=== PATIENT | male | born 1995 | race Caucasian/White ===

== ENCOUNTER 2019-10-12 23:46 | Emergency (ER) | payer OTHER ==
--- NOTE | 2019-10-13 00:17 | EDM.PDOC ---
ED HPI GENERAL MEDICAL PROBLEM - General Stated Complaint: Neck and chest pain Time Seen by Provider: 10/13/19 00:04 Source of Information: Reports: Patient History Limitations: Reports: No Limitations - History of Present Illness INITIAL COMMENTS - FREE TEXT/NARRATIVE: He is seen in the emergency department for evaluation after being injured by a cow. They were calving, and the mother cow hit him and that somehow came down on top of him. He is not sure exactly what happened. He is complaining of pain in the right side of his neck extending to the jaw. Increased pain with movement. Initially had some numbness and weak feeling in the right arm but he states that has completely resolved. He is also complaining of pain in the anterior chest most severe at the sternum and left peristernal region. He does have increased pain with deep inspiration. No difficulty breathing or shortness of breath. No cough. He denies any head injury. No headache, dizziness, lightheadedness, visual changes, nausea, vomiting or memory problems. He denies any previous injuries. No recent illness. - Related Data Allergies Allergy/AdvReac Type Severity Reaction Status Date / Time No Known Allergies Allergy Verified 10/13/19 00:23 ED ROS GENERAL - Review of Systems Review Of Systems: See Below Constitutional: Denies: Fever, Chills HEENT: Denies: Eye Pain, Nose Pain, Throat Pain Respiratory: Denies: Shortness of Breath, Cough Cardiovascular: Reports: Chest Pain (. Chest wall pain in the midline). Denies : Lightheadedness, Palpitations : Denies: Dysuria, Flank Pain, Frequency, Urgency Musculoskeletal: Reports: Neck Pain (Right side of his neck). Denies: Shoulder Pain, Back Pain, Leg Pain Skin: Denies: Rash Neurological: Reports: Numbness, Tingling. Denies: Confusion, Dizziness, Headache, Weakness, Change in Speech, Gait Disturbance Psychiatric: Denies: Anxiety, Depression Hematologic/Lymphatic: Denies: Easy Bleeding ED EXAM, GENERAL - Physical Exam Exam: See Below Exam Limited By: No Limitations General Appearance: Alert, WD/WN, No Apparent Distress Ears: Normal External Exam, Normal Canal, Hearing Grossly Normal, Normal TMs Nose: Normal Inspection, No Blood Throat/Mouth: Normal Inspection, Normal Teeth, Normal Voice, No Airway Compromise Head: Atraumatic, Normocephalic Respiratory/Chest: No Respiratory Distress, Lungs Clear, Normal Breath Sounds, Other (Moderate tenderness over the sternum and anterior chest wall on the left side. Minimal tenderness on the right side. No palpable defect or crepitance.) Cardiovascular: Regular Rate, Rhythm, No Murmur GI/Abdominal: Normal Bowel Sounds, Soft, Non-Tender, No Distention, No Mass, Pelvis Stable (Male) Exam: Deferred Rectal (Males) Exam: Deferred Back Exam: No: CVA Tenderness (L), CVA Tenderness (R), Paraspinal Tenderness, Vertebral Tenderness Extremities: Normal Inspection, Normal Range of Motion Neurological: Alert, Oriented, CN II-XII Intact, No Motor/Sensory Deficits Psychiatric: Normal Mood Skin Exam: Warm, Dry Course - Vital Signs Text/Narrative:: He was stable throughout the emergency room stay. He was on 30 mg of Toradol IV for pain. Following clearance with the CT, the cervical collar was removed. He had diffuse tightness and tenderness on the right side of his neck. No cervical tenderness. Decreased range of motion of the neck in all directions secondary to pain on the right side. - Orders/Labs/Meds Orders: Active Orders 24 hr Category Date Time Status Cervical Spine wo Cont [CT] Routine Exams 10/13/19 00:18 Taken Chest w Cont [CT] Routine Exams 10/13/19 00:17 Taken Labs: Laboratory Tests 10/13/19 Range/Units 00:01 Sodium 138 (136-145) mmol/L Potassium 3.4 L (3.5-5.1) mmol/L Chloride 102 (98-107) mmol/L Carbon Dioxide 26.8 (21.0-32.0) mmol/L BUN 25 H (7-18) mg/dL Creatinine 1.02 (0.51-1.17) mg/dL Est Cr Clr Drug Dosing TNP Estimated GFR (MDRD) > 60 mL/min Glucose 130 H (74-106) mg/dL Calcium 8.7 (8.5-10.1) mg/dL Meds: Medications Discontinued Medications Generic Name Dose Route Start Last Admin Trade Name Freq PRN Reason Stop Dose Admin Iopamidol 100 ml 10/13/19 00:18 10/13/19 00:50 Isovue-300 (61%) IVPUSH 10/13/19 00:19 100 ml ONETIME STA Administration Ketorolac Tromethamine Confirm 10/13/19 00:50 Toradol Administered 10/13/19 00:51 Dose 30 mg .ROUTE .[facility] - Radiology Interpretation Free Text/Narrative:: CT scans of the neck was negative for fracture or other acute process. CT scan of the chest is negative for fracture, pneumothorax, peristernal hematoma. Departure - Departure Time of Disposition: :20 Disposition: Home, Self-Care 01 Condition: Good Clinical Impression: Contusion, chest wall, Cervical strain, acute - Discharge Information *PRESCRIPTION DRUG MONITORING PROGRAM REVIEWED*: No *COPY OF PRESCRIPTION DRUG MONITORING REPORT IN PATIENT MICHEAL: No Instructions: Contusion, [id number], Cervical Sprain, [id number] Referrals: PCP,None [Primary Care Provider] - Additional Instructions: Apply ice to the neck and chest wall for 15 minutes 3-4 times daily. Ibuprofen 800 mg 3 times daily with food for 5 to 7 days. Tylenol as needed for additional pain control. Frequent range of motion in the neck. This should be nonpainful. Follow-up as needed. Sepsis Event Note - Focused Exam Date Exam was Performed: 10/13/19 Time Exam was Performed: :23 - Problem List Review Problem List Initiated/Reviewed/Updated: Yes - My Orders Last 24 Hours: My Active Orders 10/13/19 00:17 Chest w Cont [CT] Routine 10/13/19 00:18 Cervical Spine wo Cont [CT] Routine - Assessment/Plan Last 24 Hours: My Active Orders 10/13/19 00:17 Chest w Cont [CT] Routine 10/13/19 00:18 Cervical Spine wo Cont [CT] Routine Plan: Discussed findings and treatment options. Demonstrated range of motion and gentle cervical stretches to be done multiple times daily. Ice the neck and chest for 15 minutes 3-4 times daily. Ibuprofen 800 mg 3 times daily with food for 5 to 7 days. Tylenol as needed for additional pain control. Follow-up as needed.
[2019-10-13 00:27] LABS: CHLORIDE,CL 102 mmol/L (98-107); SODIUM,NA 138 mmol/L (136-145)
[2019-10-13] MEDS ORDERED: Ketorolac 30 MG/ML SDV ONE (00:50)
[2019-10-13] MEDS: Iopamidol 612 MG/ML 100 ML Bottle IVPUSH STA (00:50)
== END 2019-10-13 01:35 | disposition home or self-care (01) ==
LOC: LL.ED 23:46
DX: S16.1XXA Strain of muscle, fascia and tendon at neck level, initial encounter (principal); S20.212A Contusion of left front wall of thorax, initial encounter; W55.22XA Struck by cow, initial encounter
CPT/HCPCS: 36415; 71260; 72125; 80048; 99285-25; J1885; Q9967